=== PATIENT | female | born 1995 | race Hispanic/Latino ===

== ENCOUNTER 2016-05-11 14:38 | Outpatient (CLI) | payer MEDICAID, OTHER | END 2016-05-11 14:39 | disposition home or self-care (01) | LOC: MADLABBHPM 14:38 | PROVIDERS: ATTEND Family Medicine | DX: O09.893 Supervision of other high risk pregnancies, third trimester (principal) | CPT/HCPCS: 36415; 87086 ==

== ENCOUNTER 2016-06-22 14:26 | Outpatient (CLI) | payer OTHER | END 2016-06-22 14:27 | disposition home or self-care (01) | LOC: MADLABBHPM 14:26 | PROVIDERS: ATTEND Family Medicine | DX: O09.893 Supervision of other high risk pregnancies, third trimester (principal) | CPT/HCPCS: 36415; 87086 ==

== ENCOUNTER 2018-04-20 09:34 | Emergency (ER) | payer OTHER, SELFPAY | END 2018-04-20 10:08 | disposition home or self-care (01) | LOC: MADERS 09:34 | DX: R21 Rash and other nonspecific skin eruption (principal) | CPT/HCPCS: 99281 ==

== ENCOUNTER 2019-02-28 12:52 | Emergency (ER) | payer OTHER, SELFPAY ==
[2019-02-28] MEDS ORDERED: Ibuprofen 400 MG TAB ONE (13:34)
== END 2019-02-28 13:54 | disposition home or self-care (01) ==
LOC: MADERS 12:52
DX: J11.1 Influenza due to unidentified influenza virus with other respiratory manifestations (principal)
CPT/HCPCS: 99283

== ENCOUNTER 2020-05-08 07:52 | Emergency (ER) | payer OTHER ==
[2020-05-08] MEDS ORDERED: Ketorolac Tromethamine 30 MG/ML VIAL ONE (08:28)
[2020-05-08] MEDS ORDERED: Prochlorperazine 10 MG/2 ML VIAL ONE (08:28)
[2020-05-08] MEDS ORDERED: diphenhydrAMINE 50 MG/ML VIAL ONE (08:28)
== END 2020-05-08 08:45 | disposition home or self-care (01) ==
LOC: MADERS 07:52
DX: G43.909 Migraine, unspecified, not intractable, without status migrainosus (principal)
CPT/HCPCS: 96372; 99283; J0780; J1200; J1885

== ENCOUNTER 2020-11-08 11:36 | Emergency (ER) | payer OTHER ==
[2020-11-09 12:50] LABS: SARS-CoV-2 PCR by NAA Not Detected (NotDetected)
== END 2020-11-08 13:59 | disposition home or self-care (01) ==
LOC: MADERS 11:36
DX: R50.9 Fever, unspecified (principal); Z20.822 Contact with and (suspected) exposure to COVID-19
CPT/HCPCS: 99283; U0003; U0005

== ENCOUNTER 2021-03-21 15:41 | Emergency (ER) | payer OTHER ==
[2021-03-21 16:30] LABS: Pregnancy Test - Urine (BHCG) Negative (Negative); Pregu Control Background? CLEAR/WHITE (CLR/WHITE); Pregu Control Bar Appear? YES (CONTROL BAR)
[2021-03-21] MEDS ORDERED: Acetaminophen 500 MG TAB ONE (16:42)
[2021-03-22 12:07] LABS: SARS-CoV-2 PCR by NAA DETECTED (NotDetected)
== END 2021-03-21 17:01 | disposition home or self-care (01) ==
LOC: MADERS 15:41
DX: U07.1 COVID-19 (principal)
CPT/HCPCS: 81025; 99284; U0003; U0005

== ENCOUNTER 2021-05-21 20:10 | Emergency (ER) | payer OTHER ==
[2021-05-21] MEDS ORDERED: Ibuprofen 800 MG TAB ONE (20:31)
[2021-05-21] MEDS ORDERED: Ondansetron ODT 4 MG TAB ONE (20:31)
[2021-05-21 20:57] LABS: Pregnancy Test - Urine (BHCG) Negative (Negative)
[2021-05-21 20:58] LABS: Pregu Control Background? CLEAR/WHITE (CLR/WHITE); Pregu Control Bar Appear? YES (CONTROL BAR); Specific Gravity 1.023 (1.002-1.036)
[2021-05-22 14:50] LABS: SARS-CoV-2 PCR by NAA Not Detected (NotDetected)
== END 2021-05-21 21:48 | disposition home or self-care (01) ==
LOC: MADERS 20:10
DX: R50.9 Fever, unspecified (principal); M79.10 Myalgia, unspecified site; R11.2 Nausea with vomiting, unspecified; Z20.822 Contact with and (suspected) exposure to COVID-19
CPT/HCPCS: 81025; 87804; 94760; Q0162; U0003; U0005

== ENCOUNTER 2021-06-28 17:21 | Emergency (ER) | payer OTHER ==
[2021-06-28 19:29] LABS: Bilirubin Negative (Negative); Blood, Urine Negative (Negative); Clarity Clear (Clear); Glucose, Urine (Dipstick) Negative (Negative); Ketone, Urine Negative (Negative); Leukocyte Negative (Negative); Nitrite Negative (Negative); Protein, Urine (Dipstick) Negative (Neg-Trace); Specific Gravity, Urine 1.025 (1.005-1.030); Urobilinogen 0.2 mg/dL (Less than 2); pH, Urine 5.5 (5.0-9.0)
[2021-06-28 19:32] LABS: Pregnancy Test - Urine (BHCG) Indeterminate (Negative)
[2021-06-28 19:33] LABS: Pregu Control Background? CLEAR/WHITE (CLR/WHITE); Pregu Control Bar Appear? YES (CONTROL BAR); Specific Gravity 1.025 (1.002-1.036)
[2021-06-28 20:30] LABS: BHCG - Serum POSITIVE (NEGATIVE); Pregs Control Bar Appear? YES (CONTROL BAR)
[2021-06-28 20:31] LABS: Pregs Control Background? CLEAR/WHITE (CLR/WHITE)
== END 2021-06-28 20:53 | disposition home or self-care (01) ==
LOC: MADERS 17:21
DX: O21.9 Vomiting of pregnancy, unspecified (principal); Z3A.01 Less than 8 weeks gestation of pregnancy
CPT/HCPCS: 36415; 81003; 81025; 84703; 99284

== ENCOUNTER 2021-07-21 08:06 | Emergency (ER) | payer OTHER, MEDICAID ==
[2021-07-21] MEDS ORDERED: Sodium Chloride 0.9% 1,000 ML ONE (08:50)
[2021-07-21 09:22] LABS: #Basophils 0.1 thou/uL (0.0-0.2); #Eosinphils 0.2 thou/uL (0.0-0.7); #Monocytes 0.4 thou/uL (0.11-0.59); #Neutrophils 6.6 thou/uL (1.40-6.50); %Basophils 1.2 % (0.0-1.0); %Lymphocytes 21.7 % (21.0-51.0); %Monocytes 4.4 % (0.0-10.0); %Neutrophils 70.7 % (42.0-75.0); Anisocytosis SLIGHT = 6-15 cells (100X) (0-5/hpf); Hemoglobin 9.5 g/dL (12.0-16.0); Hypochromia SLIGHT = 6-15 cells (100X) (0-5/hpf); MDiff Complete? YES; Mean Corpuscular HGB CONC 29.7 g/dL (32.0-36.0); Mean Corpuscular Hemoglobin 19.9 pg (27.0-31.0); Mean Platelet Volume 11.4 fL (7.4-10.4); Microcytosis SLIGHT = 6-15 cells (100X) (0-5/hpf); Platelet Count 298 thou/uL (130-400); Platelet Morphology Comment Appears Adequate; RBC Distribution Width 18.1 % (11.5-14.5); Red Blood Cell (RBC) Count 4.79 mill/uL (4.20-5.40); White Blood Cell (WBC) Count 9.3 thou/uL (4.8-10.8)
[2021-07-21 09:24] LABS: ALT (SGPT) 11 U/L (8-55); AST (SGOT) 19 U/L (5-34); Alkaline Phosphatase 72 U/L (40-110); Anion Gap 15 mmol/L (10-20); BUN (Urea Nitrogen) 11 mg/dL (7.0-18.7); Bilirubin, Total 0.3 mg/dL (0.2-1.2); Calc. Creatinine Clearance 0 mL/min (70-130); Calcium 9.2 mg/dL (7.8-10.44); Carbon Dioxide 23 mmol/L (22-29); Chloride 106 mmol/L (98-107); Globulin 3.2 g/dL (2.4-3.5); Glucose 96 mg/dL (70-105); Protein, Total 7.2 g/dL (6.0-8.3); Sodium 140 mmol/L (136-145)
== END 2021-07-21 09:14 | disposition short-term general hospital (02) ==
LOC: MADERS 08:06
DX: O20.0 Threatened abortion (principal); Z3A.01 Less than 8 weeks gestation of pregnancy
CPT/HCPCS: 80053; 84702; 85025; 86900; 86901; 99284; J7050

== ENCOUNTER 2021-10-07 23:01 | Emergency (ER) | payer OTHER, MEDICAID ==
[~2021-10-07 23:01] MED LIST: Iopamidol 370 76% 100 ML VIAL ONE
[2021-10-07 23:39] LABS: Bilirubin Negative (Negative); Blood, Urine Negative (Negative); Clarity Clear (Clear); Glucose, Urine (Dipstick) Negative (Negative); Ketone, Urine Negative (Negative); Leukocyte Negative (Negative); Nitrite Negative (Negative); Protein, Urine (Dipstick) Negative (Neg-Trace); Urobilinogen 0.2 mg/dL (Less than 2)
[2021-10-07 23:41] LABS: Pregnancy Test - Urine (BHCG) Negative (Negative); Pregu Control Background? CLEAR/WHITE (CLR/WHITE); Pregu Control Bar Appear? YES (CONTROL BAR)
[2021-10-07] MEDS ORDERED: Morphine 4 MG/ML VIAL ONE (23:55)
[2021-10-07] MEDS ORDERED: Lactated Ringer's 1,000 ML ONE (23:55)
[2021-10-07] MEDS ORDERED: Famotidine/PF 20 mg/2ml Vial ONE (23:56)
[2021-10-07] MEDS ORDERED: Ondansetron PF 4 MG/2 ML Vial ONE (23:56)
[2021-10-08] LABS: #Basophils 0.1 thou/uL (0.0-0.2); #Eosinphils 0.4 thou/uL (0.0-0.7); #Lymphocytes 3.3 thou/uL (1.20-3.40); #Monocytes 0.6 thou/uL (0.11-0.59); #Neutrophils 6.8 thou/uL (1.40-6.50); %Basophils 0.8 % (0.0-1.0); %Eosinophils 3.4 % (0.0-10.0); %Lymphocytes 29.3 % (21.0-51.0); %Monocytes 5.4 % (0.0-10.0); %Neutrophils 61.2 % (42.0-75.0); Anisocytosis SLIGHT = 6-15 cells (100X) (0-5/hpf); Hemoglobin 11.2 g/dL (12.0-16.0); MDiff Complete? YES; Mean Corpuscular HGB CONC 29.5 g/dL (32.0-36.0); Mean Corpuscular Hemoglobin 21.9 pg (27.0-31.0); Mean Corpuscular Volume 74.2 fL (78.0-98.0); Mean Platelet Volume 13.8 fL (7.4-10.4); Ovalocytes SLIGHT = 2-5 cells (100X) (0-1/hpf); Platelet Count 313 thou/uL (130-400); Platelet Morphology Comment Appears Adequate; RBC Distribution Width 17.5 % (11.5-14.5); Red Blood Cell (RBC) Count 5.14 mill/uL (4.20-5.40); White Blood Cell (WBC) Count 11.1 thou/uL (4.8-10.8)
[2021-10-08 00:09] LABS: ALT (SGPT) 19 U/L (8-55); AST (SGOT) 32 U/L (5-34); Albumin 4.4 g/dL (3.5-5.0); Alkaline Phosphatase 93 U/L (40-110); Anion Gap 18 mmol/L (10-20); BUN (Urea Nitrogen) 10 mg/dL (7.0-18.7); Bilirubin, Total 0.3 mg/dL (0.2-1.2); Calc. Creatinine Clearance 0 mL/min (70-130); Calcium 9.5 mg/dL (7.8-10.44); Carbon Dioxide 19 mmol/L (22-29); Chloride 108 mmol/L (98-107); Estimated GFR 107; Globulin 3.5 g/dL (2.4-3.5); Glucose 129 mg/dL (70-105); Lipase 24 U/L (8-78); Magnesium 2.1 mg/dL (1.6-2.6); Potassium 4.4 mmol/L (3.5-5.1); Protein, Total 7.9 g/dL (6.0-8.3); Sodium 141 mmol/L (136-145)
[2021-10-08] MEDS ORDERED: Piperacillin/Tazobactam 4.5 GM VIAL ONE (00:56)
[2021-10-08] MEDS ORDERED: Sodium Chloride 0.9% 100 ML ONE (00:56)
[2021-10-08] MEDS ORDERED: Morphine 4 MG/ML VIAL ONE (00:57)
[2021-10-08] MEDS ORDERED: Lactated Ringer's 1,000 ML ONE (01:49)
== END 2021-10-08 03:22 | disposition short-term general hospital (02) ==
LOC: MADERS 23:01
DX: R10.11 Right upper quadrant pain (principal); R19.7 Diarrhea, unspecified; R11.10 Vomiting, unspecified
CPT/HCPCS: 74177; 80053; 81003; 81025; 83605; 83690; 83735; 85025; 96361; 96365; 96375; 96376; J2270; J2405; J2543; J3490; J7120; Q9967; S0028

== ENCOUNTER 2022-01-13 10:04 | Emergency (ER) | payer OTHER ==
[2022-01-13 11:24] LABS: Pregnancy Test - Urine (BHCG) Negative (Negative); Pregu Control Background? CLEAR/WHITE (CLR/WHITE); Pregu Control Bar Appear? YES (CONTROL BAR); Specific Gravity 1.028 (1.002-1.036)
== END 2022-01-13 12:26 | disposition home or self-care (01) ==
LOC: MADERS 10:04
DX: J11.1 Influenza due to unidentified influenza virus with other respiratory manifestations (principal); Z20.822 Contact with and (suspected) exposure to COVID-19
CPT/HCPCS: 71046; 81025; 87081; 87430; 87804; 93005; U0003; U0005

== ENCOUNTER 2024-01-26 22:57 | Emergency (ER) | payer SELFPAY ==
[2024-01-26 23:23] LABS: Bilirubin Negative (Negative); Blood, Urine Negative (Negative); Glucose, Urine (Dipstick) Negative (Negative); Ketone, Urine Negative (Negative); Leukocyte Small (Negative); Nitrite Negative (Negative); Protein, Urine (Dipstick) Negative (Neg-Trace); Urobilinogen 0.2 mg/dL (Less than 2); pH, Urine 5.5 (5.0-9.0)
[2024-01-26 23:25] LABS: Pregnancy Test - Urine (BHCG) Negative (Negative)
[2024-01-26 23:26] LABS: Pregu Control Background? CLEAR/WHITE (CLR/WHITE); Pregu Control Bar Appear? YES (CONTROL BAR)
[2024-01-26 23:31] LABS: Bacteria/HPF Rare-Few HPF (None Seen); CAUTI Indications for Culture Pelvic or flank pain; Clarity Clear (Clear); RBC/HPF 0-3 HPF (0-3)
[2024-01-26 23:32] LABS: Urine Culture Reflex Yes Yes
[2024-01-26] MEDS ORDERED: Ondansetron ODT 4 MG TAB ONE (23:32)
[2024-01-26] MEDS ORDERED: Ketorolac Tromethamine 30 MG (1 mL) VIAL ONE (23:33)
[2024-01-26] MEDS ORDERED: Lidocaine 4% Patch ONE (23:46)
[2024-01-26] MEDS ORDERED: Nitrofurantoin Monohyd/M-Cryst 100 MG CAP ONE (23:47)
[2024-01-27 00:40] LABS: #Basophils 0.1 thou/uL (0.0-0.2); #Eosinophils 0.3 thou/uL (0.0-0.7); #Lymphocytes 2.4 thou/uL (1.20-3.40); #Monocytes 0.7 thou/uL (0.11-0.59); #Neutrophils 7.6 thou/uL (1.40-6.50); %Basophils 0.9 % (0.0-1.0); %Eosinophils 2.3 % (0.0-10.0); %Lymphocytes 21.7 % (21.0-51.0); %Monocytes 6.5 % (0.0-10.0); %Neutrophils 68.6 % (42.0-75.0); Hematocrit 30.3 % (36.0-47.0); Hemoglobin 9.1 g/dL (12.0-16.0); Mean Corpuscular HGB CONC 29.9 g/dL (32.0-36.0); Mean Corpuscular Hemoglobin 20.5 pg (27.0-31.0); Mean Corpuscular Volume 68.5 fl (78.0-98.0); Mean Platelet Volume 10.5 fL (7.4-10.4); Platelet Count 326 10x3/uL (130-400); RBC Distribution Width 16.2 % (11.5-14.5); Red Blood Cell (RBC) Count 4.43 mill/uL (4.20-5.40); White Blood Cell (WBC) Count 11.1 10x3/uL (4.8-10.8)
[2024-01-27 00:41] LABS: Anisocytosis SLIGHT = 6-15 cells (100X) (0-5/hpf); MDiff Complete? YES; Microcytosis SLIGHT = 6-15 cells (100X) (0-5/hpf)
[2024-01-27 00:51] LABS: ALT (SGPT) 14 U/L (8-55); AST (SGOT) 18 U/L (5-34); Albumin 3.8 g/dL (3.5-5.0); Alkaline Phosphatase 81 U/L (40-110); Anion Gap 16 mmol/L (10-20); BUN (Urea Nitrogen) 14 mg/dL (7.0-18.7); Bilirubin, Total 0.3 mg/dL (0.2-1.2); Calc. Creatinine Clearance 0 mL/min (70-130); Carbon Dioxide 19 mmol/L (22-29); Chloride 106 mmol/L (98-107); Estimated GFR 116; Globulin 3.4 g/dL (2.4-3.5); Glucose 98 mg/dL (70-105); Potassium 3.6 mmol/L (3.5-5.1)
[2024-01-27 00:53] LABS: Protein, Total 7.2 g/dL (6.0-8.3); Sodium 137 mmol/L (136-145)
== END 2024-01-27 01:15 | disposition home or self-care (01) ==
LOC: MADERS 22:57
DX: N39.0 Urinary tract infection, site not specified (principal); D64.9 Anemia, unspecified; R10.9 Unspecified abdominal pain; R11.0 Nausea
CPT/HCPCS: 36415; 71046; 74177; 80053; 81001; 81025; 85025; 85379; 87086; 96374; J1885; Q0162; Q9967

== ENCOUNTER 2025-01-04 13:04 | Emergency (ER) | payer SELFPAY | END 2025-01-04 15:08 | disposition home or self-care (01) | LOC: MADERS 13:04 | DX: M22.2X1 Patellofemoral disorders, right knee (principal) | CPT/HCPCS: 99283 ==